=== PATIENT | female | born 1995 | race Two or more races ===

== ENCOUNTER 2025-07-31 05:23 | Emergency (ER) | payer OTHER ==
[~2025-07-31] VITALS: Ht 152.4 cm; Wt 63.5 kg
[2025-07-31] MEDS ORDERED: ACETAMINOPHEN 500 MG GEL..CAP PO ONE ×2 (07:15→07:25)
[2025-07-31] MEDS ORDERED: ONDANSETRON HCL 4 MG in 0.9 % SODIUM CHLORIDE 50 ML IV ONE (07:15)
[2025-07-31] MEDS ORDERED: 0.9 % SODIUM CHLORIDE 1,000 ML IV ONE (07:15)
[2025-07-31] MEDS ORDERED: ONDANSETRON HCL 2 MG/ML VIAL ONE (07:24)
[2025-07-31 08:04] LABS: BASO % 0.2 % (0.1-1.2); EOS # 0.07 (0.04-0.54); EOS % 0.8 % (0.7-7.0); LYMPH # 1.70 (1.18-3.74); LYMPH % 20.2 % (19.3-53.1); MEAN PLATELET VOLUME 9.40 fl (9.4-12.4); MONO # 0.59 (0.24-0.82); MONO % 7.0 % (4.7-12.5); NEUT # 6.02 (1.56-6.13); NEUT % 71.4 % (34.0-71.1); RED CELL DISTRIBUTION WIDTH 12.7 % (11.6-14.4)
[2025-07-31 08:53] LABS: ALT/SGPT 20.0 U/L (12-78); AST/SGOT 11.0 U/L (15-37); BILIRUBIN TOTAL 0.28 mg/dL (0.3-1.2); BUN CREA RATIO 18.0 (7.0-25.0); CREATININE SERUM 0.62 mg/dL (0.55-1.02); GFR 113.8; GLOBULINA 4.0 G/DL (2.4-3.5); GLUCOSE FASTING 134.0 mg/dL (65-100); OSMOLALITY SERUM 283.0 MOSM/KG (275-295)
[2025-07-31] MEDS ORDERED: ACETAMINOPHEN500 M2 PO (10:39)
== END 2025-07-31 11:07 | disposition home or self-care (01) ==
LOC: ER 05:24
PROVIDERS: General Practice
DX: O26.891 Other specified pregnancy related conditions, first trimester (principal); Z3A.09 9 weeks gestation of pregnancy; G44.209 Tension-type headache, unspecified, not intractable; Z88.1 Allergy status to other antibiotic agents